=== PATIENT | male | born 1960 | race Caucasian/White ===

== ENCOUNTER 2016-06-30 17:03 | Emergency (ER) | payer BC | END 2016-06-30 19:31 | disposition home or self-care (01) | LOC: D.ER 17:03 | DX: S83.92XA Sprain of unspecified site of left knee, initial encounter (principal); W19.XXXA Unspecified fall, initial encounter; Y93.89 Activity, other specified; Y92.019 Unspecified place in single-family (private) house as the place of occurrence of the external cause; I10 Essential (primary) hypertension; E03.9 Hypothyroidism, unspecified ==

== ENCOUNTER 2016-07-31 17:15 | Emergency (ER) | payer BC | END 2016-07-31 19:50 | disposition home or self-care (01) | LOC: D.ER 17:15 | DX: S70.01XA Contusion of right hip, initial encounter (principal); W22.8XXA Striking against or struck by other objects, initial encounter; I10 Essential (primary) hypertension ==

== ENCOUNTER 2016-09-29 19:03 | Emergency (ER) | payer BC | END 2016-09-29 21:18 | disposition home or self-care (01) | LOC: D.ER 19:03 | DX: S06.0X9A Concussion with loss of consciousness of unspecified duration, initial encounter (principal); W01.0XXA Fall on same level from slipping, tripping and stumbling without subsequent striking against object, initial encounter; Y93.89 Activity, other specified; Y92.89 Other specified places as the place of occurrence of the external cause; S16.1XXA Strain of muscle, fascia and tendon at neck level, initial encounter; S39.012A Strain of muscle, fascia and tendon of lower back, initial encounter; I10 Essential (primary) hypertension; E03.9 Hypothyroidism, unspecified ==

== ENCOUNTER 2016-10-18 22:01 | Emergency (ER) | payer BC | END 2016-10-19 01:05 | disposition home or self-care (01) | LOC: D.ER 22:01 | DX: S70.02XA Contusion of left hip, initial encounter (principal); W19.XXXA Unspecified fall, initial encounter; Y93.89 Activity, other specified; Y92.89 Other specified places as the place of occurrence of the external cause; S93.401A Sprain of unspecified ligament of right ankle, initial encounter; I10 Essential (primary) hypertension; E03.9 Hypothyroidism, unspecified ==

== ENCOUNTER 2016-12-13 23:30 | Emergency (ER) | payer BC | END 2016-12-14 00:29 | disposition home or self-care (01) | LOC: D.ER 23:30 | DX: S60.222A Contusion of left hand, initial encounter (principal); W20.8XXA Other cause of strike by thrown, projected or falling object, initial encounter; Y93.89 Activity, other specified; Y92.029 Unspecified place in mobile home as the place of occurrence of the external cause; S60.562A Insect bite (nonvenomous) of left hand, initial encounter; S60.561A Insect bite (nonvenomous) of right hand, initial encounter; I10 Essential (primary) hypertension ==

== ENCOUNTER 2017-01-20 18:52 | Emergency (ER) | payer BC | END 2017-01-20 21:13 | disposition home or self-care (01) | LOC: D.ER 18:52 | DX: S40.012A Contusion of left shoulder, initial encounter (principal); S60.212A Contusion of left wrist, initial encounter; W11.XXXA Fall on and from ladder, initial encounter; Y93.89 Activity, other specified; Y92.019 Unspecified place in single-family (private) house as the place of occurrence of the external cause; S40.212A Abrasion of left shoulder, initial encounter; S60.812A Abrasion of left wrist, initial encounter; I10 Essential (primary) hypertension; E03.9 Hypothyroidism, unspecified ==

== ENCOUNTER 2017-04-27 20:24 | Emergency (ER) | payer BC | END 2017-04-27 22:06 | disposition home or self-care (01) | LOC: D.ER 20:24 | DX: S80.01XA Contusion of right knee, initial encounter (principal); W18.2XXA Fall in (into) shower or empty bathtub, initial encounter; Y93.E1 Activity, personal bathing and showering; Y92.012 Bathroom of single-family (private) house as the place of occurrence of the external cause; S83.91XA Sprain of unspecified site of right knee, initial encounter; I10 Essential (primary) hypertension; E03.9 Hypothyroidism, unspecified ==

== ENCOUNTER 2017-06-09 20:14 | Emergency (ER) | payer BC | END 2017-06-09 21:46 | disposition home or self-care (01) | LOC: D.ER 20:14 | DX: S00.93XA Contusion of unspecified part of head, initial encounter (principal); W20.8XXA Other cause of strike by thrown, projected or falling object, initial encounter; Y93.89 Activity, other specified; Y92.017 Garden or yard in single-family (private) house as the place of occurrence of the external cause; I10 Essential (primary) hypertension ==

== ENCOUNTER 2017-08-29 21:31 | Emergency (ER) | payer BC ==
[~2017-08-29] VITALS: Ht 195.6 cm; Wt 109.1 kg
[2017-08-29 21:56] VITALS: Ht 195.6 cm; Wt 109.1 kg
[2017-08-29] MEDS ORDERED: GLUCOPHAGE500 MG PO (21:57)
[2017-08-29] MEDS ORDERED: VASOTEC20 MG PO (21:57)
[2017-08-29] MEDS ORDERED: OMEPRAZOLE40 MG PO (21:58)
[2017-08-29] MEDS ORDERED: ZOCOR40 MG PO (21:59)
[2017-08-29] MEDS ORDERED: CELEXA20 MG PO (21:59)
[2017-08-29] MEDS ORDERED: TORADOL10 MG PO (22:58)
[2017-08-29 23:16] VITALS: BP 118/73
== END 2017-08-29 23:18 | disposition home or self-care (01) ==
LOC: D.ER 21:31
DX: S93.402A Sprain of unspecified ligament of left ankle, initial encounter (principal); W01.0XXA Fall on same level from slipping, tripping and stumbling without subsequent striking against object, initial encounter; Y93.89 Activity, other specified; Y92.019 Unspecified place in single-family (private) house as the place of occurrence of the external cause; E11.9 Type 2 diabetes mellitus without complications

== ENCOUNTER 2017-10-21 20:51 | Emergency (ER) | payer BC ==
[~2017-10-21] VITALS: Ht 195.6 cm; Wt 109.1 kg
[~2017-10-21 20:51] MED LIST: CELEXA20 MG PO; GLUCOPHAGE500 MG PO; OMEPRAZOLE40 MG PO; TORADOL10 MG PO; VASOTEC20 MG PO; ZOCOR40 MG PO
[2017-10-21 21:03] VITALS: Ht 195.6 cm; Wt 109.1 kg
[2017-10-21] MEDS ORDERED: BAYER CHEWABLE81 MG PO (21:06)
[2017-10-21] MEDS ORDERED: NEURONTIN 400400 MG PO (21:06)
[2017-10-21] MEDS ORDERED: VASOTEC20 MG (21:06)
[2017-10-21] MEDS ORDERED: SYNTHROID25 MCG PO (21:07)
[2017-10-21] MEDS ORDERED: ISOSORBIDE MONO30 M1 PO (21:07)
[2017-10-22] MEDS ORDERED: TORADOL10 MG PO (00:03)
[2017-10-22 00:49] VITALS: BP 132/77
== END 2017-10-22 00:50 | disposition home or self-care (01) ==
LOC: D.ER 20:51
DX: S70.02XA Contusion of left hip, initial encounter (principal); W18.31XA Fall on same level due to stepping on an object, initial encounter; Y93.89 Activity, other specified; Y92.89 Other specified places as the place of occurrence of the external cause; E11.9 Type 2 diabetes mellitus without complications; I10 Essential (primary) hypertension; K21.9 Gastro-esophageal reflux disease without esophagitis

== ENCOUNTER 2017-12-15 16:42 | Emergency (ER) | payer BC ==
[~2017-12-15] VITALS: Ht 195.6 cm; Wt 113.6 kg
[~2017-12-15 16:42] MED LIST changes: +BAYER CHEWABLE81 MG PO; +ISOSORBIDE MONO30 M1 PO; +NEURONTIN 400400 MG PO; +SYNTHROID25 MCG PO; +VASOTEC20 MG
[2017-12-15 17:07] VITALS: Ht 195.6 cm; Wt 113.6 kg
[2017-12-15] MEDS ORDERED: ULTRAM50 MG PO (19:16)
[2017-12-15 19:38] VITALS: BP 121/82
== END 2017-12-15 19:38 | disposition home or self-care (01) ==
LOC: D.ER 16:42
DX: S93.401A Sprain of unspecified ligament of right ankle, initial encounter (principal); W11.XXXA Fall on and from ladder, initial encounter; Y93.89 Activity, other specified; Y92.019 Unspecified place in single-family (private) house as the place of occurrence of the external cause; S80.211A Abrasion, right knee, initial encounter; S90.01XA Contusion of right ankle, initial encounter; S80.01XA Contusion of right knee, initial encounter; M25.551 Pain in right hip; M54.5 Low back pain; E11.9 Type 2 diabetes mellitus without complications; I10 Essential (primary) hypertension; K21.9 Gastro-esophageal reflux disease without esophagitis

== ENCOUNTER 2019-06-21 23:34 | Emergency (ER) | payer MEDICARE ==
[~2019-06-21] VITALS: Ht 195.6 cm; Wt 118.2 kg
[~2019-06-21 23:34] MED LIST changes: +ULTRAM50 MG PO
[2019-06-21 23:38] VITALS: BP 134/71; Ht 195.6 cm; Wt 118.2 kg
== END 2019-06-22 00:15 | disposition home or self-care (01) ==
LOC: D.ER 23:34
DX: S60.221A Contusion of right hand, initial encounter (principal); E11.40 Type 2 diabetes mellitus with diabetic neuropathy, unspecified; I10 Essential (primary) hypertension; K21.9 Gastro-esophageal reflux disease without esophagitis; Z79.84 Long term (current) use of oral hypoglycemic drugs; W22.8XXA Striking against or struck by other objects, initial encounter; Y93.9 Activity, unspecified; Y92.9 Unspecified place or not applicable

== ENCOUNTER 2019-09-09 23:20 | Emergency (ER) | payer MEDICARE ==
[~2019-09-09] VITALS: Ht 195.6 cm; Wt 113.6 kg
[2019-09-09 23:30] VITALS: Ht 195.6 cm; Wt 113.6 kg
[2019-09-10] MEDS ORDERED: BENICAR40 MG PO (00:37)
[2019-09-10] MEDS ORDERED: CYMBALTA30 MG PO (00:37)
[2019-09-10] MEDS ORDERED: MAG-OXIDE400 MG PO (00:38)
[2019-09-10] MEDS ORDERED: VOLTAREN75 MG PO ×2 (00:38→01:14)
[2019-09-10] MEDS ORDERED: HYDROCHLOROTHIA25 MG PO (00:38)
[2019-09-10] MEDS ORDERED: BETAPACE 120 M120 MG PO (00:39)
[2019-09-10] MEDS ORDERED: HYDROCODON-ACE1 EA10 PO (00:40)
[2019-09-10] MEDS ORDERED: LIPITOR10 MG PO (00:41)
[2019-09-10] MEDS ORDERED: FISH OIL 1,0001 CA1 PO (00:41)
[2019-09-10] MEDS ORDERED: STOOL SOFTENER (00:41)
[2019-09-10] MEDS ORDERED: [UNRECOGNIZED DRUG - OTHER] (00:42)
[2019-09-10] MEDS ORDERED: FENOFIBRATE160 MG PO (00:42)
[2019-09-10] MEDS ORDERED: VITAMIN D1000 UNIT PO (00:43)
[2019-09-10] MEDS ORDERED: NOVOLOG100 UNIT/1 SC (00:46)
[2019-09-10] MEDS ORDERED: TRESIBA FL100 UNIT/1 SC (00:47)
[2019-09-10] MEDS ORDERED: METHOCARBAMOL500 MG PO (01:14)
[2019-09-10 01:41] VITALS: BP 148/79
== END 2019-09-10 01:41 | disposition home or self-care (01) ==
LOC: D.ER 23:20
DX: S70.02XA Contusion of left hip, initial encounter (principal); W19.XXXA Unspecified fall, initial encounter; Y93.9 Activity, unspecified; Y92.9 Unspecified place or not applicable; I10 Essential (primary) hypertension; E11.9 Type 2 diabetes mellitus without complications; Z79.84 Long term (current) use of oral hypoglycemic drugs; R51 Headache; M25.552 Pain in left hip